=== PATIENT | female | born 1975 | race Caucasian/White ===

== ENCOUNTER 2021-01-25 12:47 | Emergency (ER) | payer MEDICARE, MEDICAID ==
[~2021-01-25] VITALS: Ht 152.4 cm; Wt 94.0 kg
[2021-01-25] MEDS ORDERED: dextrose ORAL solution 15 GM/59 ML bottle PO PRN (13:05)
--- NOTE | 2021-01-25 13:35 | NUR ---
BS 61. improved from BS 34
[2021-01-25] MEDS ORDERED: dextrose 50%-water 50ml dispensing syringe IV ONE (14:02)
[2021-01-25 15:03] LABS: BASOPHILS # (AUTO) 0.1 X10'3 (0-0.2); BASOPHILS % (AUTO) 0.8 % (0-1); EOSINOPHILS # (AUTO) 0.4 X10'3 (0-0.9); EOSINOPHILS % (AUTO) 6.5 % (0-6); HEMATOCRIT 25.8 % (35.0-45.0); HEMOGLOBIN 8.2 g/dl (12.0-16.0); LYMPHOCYTES % (AUTO) 14.9 % (21-51); MEAN CORPUSCULAR HEMOGLOBIN 32.3 PG (27.0-31.0); MEAN CORPUSCULAR HGB CONC 31.9 g/dL (33.0-36.5); MEAN CORPUSCULAR VOLUME 101.2 FL (78-98); MEAN PLATELET VOLUME 8.6 FL (7.4-10.4); MONOCYTES # (AUTO) 0.5 X10'3 (0-0.9); MONOCYTES % (AUTO) 7.1 % (2-12); NEUTROPHILS # (AUTO) 4.8 X10'3 (1.8-7.7); NEUTROPHILS % (AUTO) 70.7 % (42-75); PLATELET COUNT 170 X10'3 (140-440); RED BLOOD COUNT 2.54 X10'6 (4.20-5.60); RED CELL DISTRIBUTION WIDTH 20.1 % (11.5-14.5); WHITE BLOOD COUNT 6.9 X10'3 (4.5-11.0)
[2021-01-25 15:25] LABS: ALBUMIN/GLOBULIN RATIO 0.5 (1.1-1.5); ALKALINE PHOSPHATASE 165 IU/L (46-116); ANION GAP 13 (8-16); ASPARTATE AMINO TRANSFERASE 17 U/L (10-37); BILIRUBIN,TOTAL 0.5 MG/DL (0.1-1.0); BLOOD UREA NITROGEN 24 MG/DL (7-18); BUN/CREATININE RATIO 3.4 (6.6-38.0); CALCIUM 8.7 MG/DL (8.5-10.1); CHLORIDE 105 MMOL/L (99-107); GLUCOSE 128 MG/DL (70-104); POTASSIUM 3.7 MMOL/L (3.5-5.1); SODIUM 143 MMOL/L (135-145); TOTAL CARBON DIOXIDE 24.6 MMOL/L (24-32); TOTAL PROTEIN 6.2 G/DL (6.4-8.2); eGFR 6 ML/MIN
[2021-01-25 15:28] LABS: ALANINE AMINOTRANSFERASE < 6 U/L (12-78)
[2021-01-25 19:56] VITALS: BP 132/79
== END 2021-01-25 20:27 | disposition home or self-care (01) ==
LOC: ER 12:49
DX: E11.649 Type 2 diabetes mellitus with hypoglycemia without coma (principal); E11.22 Type 2 diabetes mellitus with diabetic chronic kidney disease; N18.6 End stage renal disease; Z99.2 Dependence on renal dialysis; Z79.4 Long term (current) use of insulin
CPT/HCPCS: 36415; 80053; 82948; 83605; 84145; 85025; 87040; 87077; 87186; 93005; 96374; 99284; 99291

== ENCOUNTER 2021-05-28 14:25 | Inpatient (IN) | payer MEDICARE, MEDICAID ==
[~2021-05-28] VITALS: Ht 160 cm; Wt 104.0 kg
[2021-05-28] MEDS ORDERED: dextrose 50%-water 50ml dispensing syringe IV ONE (15:10)
[2021-05-28 15:14] LABS: BASOPHILS % (AUTO) 0.6 % (0-1); EOSINOPHILS # (AUTO) 0.1 X10'3 (0-0.9); EOSINOPHILS % (AUTO) 0.8 % (0-6); HEMATOCRIT 24.7 % (35.0-45.0); HEMOGLOBIN 8.2 g/dl (12.0-16.0); LYMPHOCYTES # (AUTO) 0.9 X10'3 (1.1-4.8); LYMPHOCYTES % (AUTO) 12.9 % (21-51); MEAN CORPUSCULAR HEMOGLOBIN 30.8 PG (27.0-31.0); MEAN CORPUSCULAR HGB CONC 33.3 g/dL (33.0-36.5); MEAN CORPUSCULAR VOLUME 92.5 FL (78-98); MEAN PLATELET VOLUME 8.2 FL (7.4-10.4); MONOCYTES # (AUTO) 0.5 X10'3 (0-0.9); MONOCYTES % (AUTO) 6.8 % (2-12); NEUTROPHILS # (AUTO) 5.8 X10'3 (1.8-7.7); NEUTROPHILS % (AUTO) 78.9 % (42-75); PLATELET COUNT 136 X10'3 (140-440); RED BLOOD COUNT 2.67 X10'6 (4.20-5.60); RED CELL DISTRIBUTION WIDTH 18.6 % (11.5-14.5); WHITE BLOOD COUNT 7.4 X10'3 (4.5-11.0)
[2021-05-28 15:37] LABS: ALANINE AMINOTRANSFERASE 11 U/L (12-78); ALBUMIN 1.2 G/DL (3.4-5.0); ALBUMIN/GLOBULIN RATIO 0.3 (1.1-1.5); ALKALINE PHOSPHATASE 138 IU/L (46-116); ANION GAP 11 (8-16); ASPARTATE AMINO TRANSFERASE 66 U/L (10-37); BILIRUBIN,TOTAL 0.9 MG/DL (0.1-1.0); CALCIUM 9.2 MG/DL (8.5-10.1); CHLORIDE 102 MMOL/L (99-107); GLUCOSE 68 MG/DL (70-104); MAGNESIUM 1.7 MG/DL (1.5-2.4); POTASSIUM 3.8 MMOL/L (3.5-5.1); SODIUM 139 MMOL/L (135-145); TOTAL CARBON DIOXIDE 26.2 MMOL/L (24-32); TOTAL PROTEIN 4.8 G/DL (6.4-8.2)
[2021-05-28 15:47] LABS: BLOOD UREA NITROGEN 7 MG/DL (7-18); eGFR 12 ML/MIN
[2021-05-28 15:49] LABS: BUN/CREATININE RATIO 1.8 (6.6-38.0)
--- NOTE | 2021-05-28 16:15 | NUR ---
xray at bedside
[2021-05-28] MEDS ORDERED: ondansetron/PF 4mg/2ml inj IV ONE (16:20)
[2021-05-28] MEDS ORDERED: morphine 4 MG/ML inj SYRINge IV ONE (16:20)
[2021-05-28] MEDS ORDERED: MESSAGE TO PHARMACY PO ONE (16:25)
[2021-05-28] MEDS ORDERED: magnesium 2GM in 50ml NS 50 ML IV PRN (16:25)
[2021-05-28] MEDS ORDERED: dextrose 50%-water 50ml dispensing syringe IV PRN (16:25)
[2021-05-28] MEDS ORDERED: insulin Lispro (HumaLOG) vial - multi-dose SQ SCH (16:25)
[2021-05-28] MEDS ORDERED: magnesium hydroxide 30ml (MOM) UD suspension PO PRN (16:25)
[2021-05-28] MEDS ORDERED: potassium CL 10mEq/100ml bag 100 ML IV PRN (16:25)
[2021-05-28] MEDS ORDERED: magnesium 4gm in 100ml NS 100 ML IV PRN (16:25)
[2021-05-28] MEDS ORDERED: potassium Cl 20 mEq SR tablet PO PRN ×2 (16:25)
[2021-05-28] MEDS ORDERED: dextrose ORAL solution 15 GM/59 ML bottle PO PRN ×2 (16:25)
[2021-05-28] MEDS ORDERED: ondansetron/PF 4mg/2ml inj IV PRN (16:25)
[2021-05-28] MEDS ORDERED: acetaminophen 325mg tablet PO PRN (16:25)
[2021-05-28] MEDS ORDERED: mag hydrox/Alum hydrox/simeth 30ml oral suspension PO PRN (16:25)
[2021-05-28] MEDS ORDERED: glucagon, human recombinant 1mg kit SUBCUT PRN (16:25)
--- NOTE | 2021-05-28 16:30 | NUR ---
pt changed into gown, linens changed, medicated for pain.
--- NOTE | 2021-05-28 16:41 | NUR ---
admitting provider at bedside.
[2021-05-28 16:57] LABS: ANISOCYTOSIS 2+; PLATELET ESTIMATE DECREASED; TARGET CELLS 1+
[2021-05-28 16:59] LABS: HYPOCHROMASIA 1+; LARGE PLATELETS FEW; POLYCHROMASIA 2+
[2021-05-28] MEDS ORDERED: dextrose 5%-water 1,000 ML IV SCH (17:20)
[2021-05-28] MEDS ORDERED: INSU100C10 SQ (17:56)
[2021-05-28] MEDS ORDERED: HYDR-3972 PO (17:56)
[2021-05-28] MEDS ORDERED: INSU100V9 SQ (17:56)
[2021-05-28] MEDS ORDERED: ATOR40TA7 PO (17:56)
[2021-05-28] MEDS ORDERED: ASPI-611 PO (17:56)
[2021-05-28] MEDS ORDERED: GABA300C PO (17:56)
[2021-05-28] MEDS ORDERED: PANT-47 PO (17:56)
[2021-05-28] MEDS: K and/or MAG REPLACEMENT MC SCH (20:00)
[2021-05-28] MEDS: docusate sod 100mg capsule PO SCH (20:00)
[2021-05-28] MEDS: insulin glargine (Lantus) pen - multi-dose SQ SCH (21:00)
--- NOTE | 2021-05-28 21:49 | NUR ---
Received report from ER nurse Ledy, Dx: Hypoglycemia BG 35 when arrived to ER, D5 100 was adm. at ER, BG was increased at 94.
--- NOTE | 2021-05-28 22:20 | NUR ---
Patient arrived from ER via room care bed, with 2 personnels to 3015B. Transfer to bed with 4 assist., 2 skin assessment and nares swab completed. AAOX4, Dx: Hypoglycemia, Hx: ESRD, HTN, Multiple skin wounds, PVD, BKA. Safety measures and comfort provided. Will continue to monitor.
[2021-05-28 23:00] VITALS: BP 100/59
--- NOTE | 2021-05-29 00:30 | NUR ---
Patient c/o pain to Sacral area and ARMIDA knee stumps. Called placed to Dr Romo and new orders was received and carried out.
[2021-05-29] MEDS ORDERED: HYDROcodone/acetaminophen 10/325mg tab PO ONE (00:40)
[2021-05-29 03:00] VITALS: BP 104/56
--- NOTE | 2021-05-29 05:30 | NUR ---
BG 74, no s/s of hypoglycemia noted. Juice was given, tolerated well. Repositioned patient. Safety measures and comfort maintained. Will continue to monitor.
--- NOTE | 2021-05-29 06:24 | NUR ---
Problems reprioritized. Patient report given, questions answered & plan of care reviewed with CHRIS Carvalho.
[2021-05-29 07:00] VITALS: BP 100/58
--- NOTE | 2021-05-29 07:00 | NUR ---
Patient in room PCU 3015. I have received report from Flower and had the opportunity to ask questions and assume patient care.
[2021-05-29 07:29] LABS: BASOPHILS % (AUTO) 0.7 % (0-1); EOSINOPHILS # (AUTO) 0.1 X10'3 (0-0.9); EOSINOPHILS % (AUTO) 1.9 % (0-6); HEMATOCRIT 23.6 % (35.0-45.0); LYMPHOCYTES # (AUTO) 0.9 X10'3 (1.1-4.8); LYMPHOCYTES % (AUTO) 14.6 % (21-51); MEAN CORPUSCULAR HEMOGLOBIN 31.2 PG (27.0-31.0); MEAN CORPUSCULAR VOLUME 91.9 FL (78-98); MONOCYTES # (AUTO) 0.5 X10'3 (0-0.9); NEUTROPHILS # (AUTO) 4.8 X10'3 (1.8-7.7); NEUTROPHILS % (AUTO) 74.8 % (42-75); PLATELET COUNT 133 X10'3 (140-440); RED BLOOD COUNT 2.57 X10'6 (4.20-5.60); RED CELL DISTRIBUTION WIDTH 18.9 % (11.5-14.5); WHITE BLOOD COUNT 6.5 X10'3 (4.5-11.0)
[2021-05-29 07:46] LABS: ALANINE AMINOTRANSFERASE 11 U/L (12-78); ALBUMIN 1.2 G/DL (3.4-5.0); ALBUMIN/GLOBULIN RATIO 0.3 (1.1-1.5); ALKALINE PHOSPHATASE 131 IU/L (46-116); ANION GAP 11 (8-16); ASPARTATE AMINO TRANSFERASE 55 U/L (10-37); BLOOD UREA NITROGEN 8 MG/DL (7-18); BUN/CREATININE RATIO 1.9 (6.6-38.0); CALCIUM 9.1 MG/DL (8.5-10.1); CHLORIDE 104 MMOL/L (99-107); CREATININE 4.15 MG/DL (0.40-0.90); GLUCOSE 91 MG/DL (70-104); MAGNESIUM 1.8 MG/DL (1.5-2.4); POTASSIUM 3.8 MMOL/L (3.5-5.1); SODIUM 142 MMOL/L (135-145); TOTAL CARBON DIOXIDE 26.7 MMOL/L (24-32); TOTAL PROTEIN 4.9 G/DL (6.4-8.2); eGFR 12 ML/MIN
[2021-05-29] MEDS ORDERED: EPOETIN ALFA-EPBX 20,000 UNIT/ML 1 ML MDV IV ONE (08:00)
[2021-05-29] MEDS: K and/or MAG REPLACEMENT MC SCH ×2 (08:00→20:00)
[2021-05-29] MEDS ORDERED: normal saline 1000ml 250 ML IV PRN (08:00)
[2021-05-29] MEDS ORDERED: heparin 1,000 units/ml 10ml inj HE ONE ×2 (08:00)
[2021-05-29] MEDS ORDERED: heparin 1,000unit/ml 10ml vial 10 ML IV ONE (08:00)
[2021-05-29 08:39] LABS: PLATELET ESTIMATE DECREASED
[2021-05-29 08:40] LABS: ANISOCYTOSIS 2+; POIKILOCYTOSIS 1+; POLYCHROMASIA FEW; TARGET CELLS 1+
[2021-05-29] MEDS: gabapentin 300mg capsule PO SCH (08:53)
[2021-05-29] MEDS: docusate sod 100mg capsule PO SCH ×2 (08:53→20:18)
[2021-05-29] MEDS: HYDROcodone/acetaminophen 10/325mg tab PO SCH (08:53)
[2021-05-29] MEDS: atorvastatin 20mg tablet PO SCH (08:54)
[2021-05-29] MEDS: aspirin 81mg, enteric-coated 1 TAB TABLET.DR PO SCH (08:54)
[2021-05-29] MEDS: pantoprazole 40mg Tablet.DR PO SCH (08:59)
[2021-05-29 11:00] VITALS: BP 93/54
--- NOTE | 2021-05-29 14:33 | NUR ---
Malnutrition consult: Pt unsure of wt loss though reports decreased appetite per malnutrition risk screen with RN. Current documented wt is not scaled and no wt hx in EMR. Noted pt documented to have refused first meal on renal CHO controlled diet. Pt seen at bedside while receiving dialysis though unable to obtain any information as pt sleepy and quickly fell asleep during RD visit. RD was able to provide written and verbal protein education prior to pt falling asleep as pt pending wound care assessment for multiple wounds per EMR. Pt with no visible fat or muscle wasting and no documented edema or decrease in muscle strength. Pt currently lacks a minimum of two criteria for malnutrition though will continue to monitor qualifying criteria. Noted pt with DM, very well controlled with A1c 4.6%. D/w RN recommendation to discontinue CHO controlled diet with physician approval in view of A1c as well as pt with episodes of hypoglycemia with BG 35 mg/dL while at wound care per H&P with BG range 55-101 mg/dL since admit. Will continue to follow. Addendum: 05/29/21 at [address] Amended: Links added.
--- NOTE | 2021-05-29 14:53 | NUR ---
Dr. Partida notified via spoke of patient's post dialysis bp-82/60 and no fluids taken out per dialysis nurse. Addendum: 05/29/21 at 1500 by Marilyn Cortez RN Patient's bp should be monitored per Dr. Partida. Plan of care will continue.
[2021-05-29 15:00] VITALS: BP 89/43
[2021-05-29] MEDS ORDERED: HYDROcodone/acetaminophen 10/325mg tab PO PRN (15:15)
[2021-05-29] MEDS ORDERED: morphine 2 MG/ML inj. syringe IV PRN (15:15)
[2021-05-29 18:00] VITALS: BP 90/50
--- NOTE | 2021-05-29 19:04 | NUR ---
Problems reprioritized. Patient report given, questions answered & plan of care reviewed with Anu.
--- NOTE | 2021-05-29 20:24 | NUR ---
Blood sugar 64. client provided with 15G PO glucose solution. blood sugar recheck is 63. Client provided with 25G of IV glucose solution. blood sugar recheck 133. Miss Michel declined dinner this evening. she is resting but arousals easily and conducts conversations when awake.
[2021-05-29] MEDS: insulin glargine (Lantus) pen - multi-dose SQ SCH (20:33)
[2021-05-29] MEDS: dextrose 50%-water 50ml dispensing syringe IV PRN (21:31)
[2021-05-29 22:00] VITALS: BP 145/68
[2021-05-30] VITALS (8 sets, daily range): BP systolic 74–145; BP diastolic 28–61
--- NOTE | 2021-05-30 02:15 | NUR ---
Blood Sugar 93
--- NOTE | 2021-05-30 05:45 | NUR ---
Miss Balbuena has been assessed as indicted. She has been successfully treated for pain x1 this shift. Low blood sugar was treated and followup this shift. She has been bathed and wounds cleansed and dressed. She was anuric BP is WNL. She has been assisted to lay completely on her Right side per her request. She has been assisted to eat one small cup of apple sauce at this time. She is resting quietly and will continue to be monitored
--- NOTE | 2021-05-30 06:15 | NUR ---
Problems reprioritized. Patient report given, questions answered & plan of care reviewed with Maia PEREZ.
--- NOTE | 2021-05-30 06:29 | NUR ---
Patient in room PCU 3015. I have received report from Anu and had the opportunity to ask questions and assume patient care.
[2021-05-30 06:47] LABS: BASOPHILS % (AUTO) 0.4 % (0-1); EOSINOPHILS # (AUTO) 0.1 X10'3 (0-0.9); EOSINOPHILS % (AUTO) 1.8 % (0-6); HEMATOCRIT 27.5 % (35.0-45.0); HEMOGLOBIN 8.7 g/dl (12.0-16.0); LYMPHOCYTES # (AUTO) 0.9 X10'3 (1.1-4.8); LYMPHOCYTES % (AUTO) 15.4 % (21-51); MEAN CORPUSCULAR HEMOGLOBIN 30.9 PG (27.0-31.0); MEAN CORPUSCULAR HGB CONC 31.5 g/dL (33.0-36.5); MEAN PLATELET VOLUME 7.8 FL (7.4-10.4); MONOCYTES # (AUTO) 0.5 X10'3 (0-0.9); MONOCYTES % (AUTO) 8.6 % (2-12); NEUTROPHILS # (AUTO) 4.4 X10'3 (1.8-7.7); NEUTROPHILS % (AUTO) 73.8 % (42-75); PLATELET COUNT 106 X10'3 (140-440); RED BLOOD COUNT 2.81 X10'6 (4.20-5.60); RED CELL DISTRIBUTION WIDTH 20.8 % (11.5-14.5); WHITE BLOOD COUNT 5.9 X10'3 (4.5-11.0)
[2021-05-30 07:11] LABS: ALANINE AMINOTRANSFERASE 14 U/L (12-78); ALBUMIN 1.3 G/DL (3.4-5.0); ALBUMIN/GLOBULIN RATIO 0.3 (1.1-1.5); ALKALINE PHOSPHATASE 154 IU/L (46-116); ANION GAP 9 (8-16); ASPARTATE AMINO TRANSFERASE 56 U/L (10-37); BILIRUBIN,TOTAL 1.2 MG/DL (0.1-1.0); BLOOD UREA NITROGEN 4 MG/DL (7-18); BUN/CREATININE RATIO 1.5 (6.6-38.0); CALCIUM 8.6 MG/DL (8.5-10.1); CHLORIDE 105 MMOL/L (99-107); CREATININE 2.65 MG/DL (0.40-0.90); GLUCOSE 88 MG/DL (70-104); MAGNESIUM 1.7 MG/DL (1.5-2.4); POTASSIUM 4.1 MMOL/L (3.5-5.1); SODIUM 139 MMOL/L (135-145); TOTAL CARBON DIOXIDE 25.5 MMOL/L (24-32); TOTAL PROTEIN 5.3 G/DL (6.4-8.2); eGFR 19 ML/MIN
[2021-05-30 07:17] LABS: ANISOCYTOSIS 3+; PLATELET ESTIMATE DECREASED; POLYCHROMASIA 1+; ROULEAUX 1+; SPHEROCYTES FEW; TARGET CELLS 2+
[2021-05-30] MEDS: K and/or MAG REPLACEMENT MC SCH ×2 (08:00→20:00)
[2021-05-30] MEDS: aspirin 81mg, enteric-coated 1 TAB TABLET.DR PO SCH (08:11)
[2021-05-30] MEDS: gabapentin 300mg capsule PO SCH (08:11)
[2021-05-30] MEDS: HYDROcodone/acetaminophen 10/325mg tab PO SCH (08:12)
[2021-05-30] MEDS: pantoprazole 40mg Tablet.DR PO SCH (08:13)
[2021-05-30] MEDS: atorvastatin 20mg tablet PO SCH (08:13)
[2021-05-30] MEDS: docusate sod 100mg capsule PO SCH ×2 (08:16→20:12)
[2021-05-30] MEDS ORDERED: oxyCODONE/APAP 10/325mg tablet PO PRN (11:40)
--- NOTE | 2021-05-30 11:42 | NUR ---
Scheduled and prn Belfair d/c, prn Percocet 10mg ordered per provider. Plan of care will continue.
--- NOTE | 2021-05-30 12:52 | NUR ---
Dr. Partida made aware of patient's bp-75/53. Will continue to monitor per DR. Partida.
[2021-05-30] MEDS: insulin glargine (Lantus) pen - multi-dose SQ SCH (20:24)
--- NOTE | 2021-05-30 21:07 | NUR ---
Miss Balbuena continues to have low BP. Dr Ladd contacted, new orders for Midodrine TID. If Miss Balbuena's BP does not improve or if she becomes tachycardic ICU is to be contacted.
[2021-05-30] MEDS: midodrine 5mg tablet PO SCH (21:56)
[2021-05-31 02:00] VITALS: BP 89/33
--- NOTE | 2021-05-31 05:45 | NUR ---
Miss Balbuena has been assessed as indicated. She has been assisted to eat and was able to complete 1/2 of her dinner. BP has begun to increase after new medication Midodrine was provided. She does complain of mild pain with repositioning. However, her BP has not been stable so as to tolerate the possible drop with pain medication. She is presently resting quietly.
[2021-05-31 06:00] VITALS: BP 103/24
--- NOTE | 2021-05-31 06:15 | NUR ---
Problems reprioritized. Patient report given, questions answered & plan of care reviewed with KIERRA PEREZ.
[2021-05-31 07:03] LABS: BASOPHILS % (AUTO) 0.7 % (0-1); EOSINOPHILS # (AUTO) 0.1 X10'3 (0-0.9); EOSINOPHILS % (AUTO) 2.3 % (0-6); HEMATOCRIT 25.7 % (35.0-45.0); HEMOGLOBIN 8.4 g/dl (12.0-16.0); LYMPHOCYTES % (AUTO) 15.1 % (21-51); MEAN CORPUSCULAR HEMOGLOBIN 31.2 PG (27.0-31.0); MEAN CORPUSCULAR HGB CONC 32.8 g/dL (33.0-36.5); MEAN CORPUSCULAR VOLUME 94.8 FL (78-98); MEAN PLATELET VOLUME 8.5 FL (7.4-10.4); MONOCYTES # (AUTO) 0.6 X10'3 (0-0.9); MONOCYTES % (AUTO) 9.2 % (2-12); NEUTROPHILS # (AUTO) 4.8 X10'3 (1.8-7.7); NEUTROPHILS % (AUTO) 72.7 % (42-75); PLATELET COUNT 131 X10'3 (140-440); RED BLOOD COUNT 2.71 X10'6 (4.20-5.60); RED CELL DISTRIBUTION WIDTH 20.8 % (11.5-14.5); WHITE BLOOD COUNT 6.6 X10'3 (4.5-11.0)
[2021-05-31 07:33] LABS: ALANINE AMINOTRANSFERASE 16 U/L (12-78); ALBUMIN 1.3 G/DL (3.4-5.0); ALBUMIN/GLOBULIN RATIO 0.3 (1.1-1.5); ALKALINE PHOSPHATASE 180 IU/L (46-116); ANION GAP 7 (8-16); ASPARTATE AMINO TRANSFERASE 50 U/L (10-37); BILIRUBIN,TOTAL 1.2 MG/DL (0.1-1.0); BLOOD UREA NITROGEN 5 MG/DL (7-18); BUN/CREATININE RATIO 1.6 (6.6-38.0); CHLORIDE 104 MMOL/L (99-107); CREATININE 3.12 MG/DL (0.40-0.90); GLUCOSE 120 MG/DL (70-104); MAGNESIUM 1.8 MG/DL (1.5-2.4); POTASSIUM 4.2 MMOL/L (3.5-5.1); SODIUM 139 MMOL/L (135-145); TOTAL CARBON DIOXIDE 28.5 MMOL/L (24-32); TOTAL PROTEIN 5.4 G/DL (6.4-8.2); eGFR 16 ML/MIN
[2021-05-31] MEDS: atorvastatin 20mg tablet PO SCH (07:44)
[2021-05-31] MEDS: pantoprazole 40mg Tablet.DR PO SCH (07:44)
[2021-05-31] MEDS: gabapentin 300mg capsule PO SCH (07:44)
[2021-05-31] MEDS: aspirin 81mg, enteric-coated 1 TAB TABLET.DR PO SCH (07:45)
[2021-05-31] MEDS: docusate sod 100mg capsule PO SCH ×2 (07:45→21:21)
[2021-05-31] MEDS: midodrine 5mg tablet PO SCH ×3 (07:45→16:24)
[2021-05-31] MEDS: K and/or MAG REPLACEMENT MC SCH ×2 (08:00→19:21)
[2021-05-31] MEDS ORDERED: EPOETIN ALFA-EPBX 20,000 UNIT/ML 1 ML MDV IV ONE (10:45)
[2021-05-31] MEDS ORDERED: heparin 1,000unit/ml 10ml vial 10 ML IV ONE (10:45)
[2021-05-31] MEDS ORDERED: heparin 1,000 units/ml 10ml inj HE ONE ×2 (10:50)
[2021-05-31 11:00] VITALS: BP 97/55
[2021-05-31] MEDS ORDERED: OXYC1TAB17 PO (11:48)
[2021-05-31] MEDS ORDERED: vancomycin/NS 1 GM ADD-VANTAGE 250 ML IV ONE (13:45)
[2021-05-31 15:00] VITALS: BP 95/58
--- NOTE | 2021-05-31 16:02 | NUR ---
WOUND INFECTION EDUCATION PROVIDED BY WOUND CARE 1. Patient instructed to call their primary doctor, or go the ED immediately if any of the following symptoms occur: * Increased pain in wound * Increase in drainage from the wound * Redness in the skin surrounding the wound * Warmth in the skin surrounding the wound * Bleeding from the wound * Temperature of 101 or greater 2. If any of these occur while in the hospital tell a nurse immediately. PRESSURE ULCER EDUCATION: DEFINITION: A pressure ulcer is an area of skin that breaks down when you stay in one position too long. The constant pressure against the skin reduces the blood flow to that area and the affected tissue dies. CAUSES: "Being bedridden or in a wheelchair "Fragile skin "Having a chronic condition, such as diabetes or vascular disease "Inability to move certain parts of your body without assistance "Older age "Incontinence of urine or stool SYMPTOMS: "A reddened area that DOES NOT turn white when pressed on - this can be the beginning of a pressure ulcer "A blister, deep sore or a crater - these can be advanced pressure ulcers FIRST AID: "Relieve the pressure on this area "Keep the area clean and dry "Call your primary doctor if you see any of the above symptoms "DO NOT massage the area "DO NOT use a donut shaped or ring shaped pillow- these actually interfere with the blood flow and cause complications PREVENTION: "Check for pressure ulcers everyday "Change position at least every two hours to relieve pressure "Use items that help relieve pressure- pillows, sheepskin, foam padding, and powders. "Keep skin clean and dry "Eat healthy well balanced meals "Exercise daily IF YOU SEE ANY OF THESE SYMPTOMS WHILE IN THE HOSPITAL - TELL YOUR NURSE IMMEDIATELY. IF YOU SEE ANY OF THESE SYMPTOMS WHILE AT HOME OR HAVE ANY QUESTIONS OR CONCERNS ABOUT PRESSURE ULCERS - CALL YOUR PRIMARY DOCTOR IMMEDIATELY. Addendum: 05/31/21 at 1603 by Debra Katz RN Amended: Links added.
--- NOTE | 2021-05-31 19:00 | NUR ---
Miss Balbuena has been assessed as indicated. She is resting quietly with no s/s of distress or discomfort. she is sleeping but arouses easily. VSS.
[2021-05-31 20:00] VITALS: BP 97/71
[2021-05-31] MEDS: insulin glargine (Lantus) pen - multi-dose SQ SCH (21:00)
--- NOTE | 2021-05-31 22:30 | NUR ---
Miss Michel has is being set up to be assisted with dinner. She is sleeping but arouses easily. She is sleepy as she has been in recent evening shifts. This mortgage or loan underwriter calls her name repeatedly and she replies by saying "Im up". She is offered dinner and agrees with a nod She is given 1/2 cookie and tolerates it well. She is given a carrot from her warmed plate she began to chew and makes a face. She is asked if she wants to spit it out she nods yes and spits it into a napkin.easily. She starts to have a moist productive cough. She is unable to expectorate the secretions. Her head begin to loll to the side with fixed pupil. She does have a pulse and continues to breath. Staff starts the rapid response call protocol.However, her heat drops to 38 rapidly. A code blue is called and initiated.
--- NOTE | 2021-05-31 22:50 | NUR ---
phone call placed to Miss Balbuena next of kin. Garo Pierce ([phone]) He states that he is her . He is informed that he condition has changed and he CPR has been started and that he should make his way to the hospital as quickly as he can. He states that he is on his way.
[2021-05-31 23:04] LABS: BASOPHILS # (AUTO) 0.1 X10'3 (0-0.2); BASOPHILS % (AUTO) 0.6 % (0-1); EOSINOPHILS # (AUTO) 0.2 X10'3 (0-0.9); EOSINOPHILS % (AUTO) 1.6 % (0-6); HEMATOCRIT 27.3 % (35.0-45.0); HEMOGLOBIN 8.7 g/dl (12.0-16.0); LYMPHOCYTES # (AUTO) 3.6 X10'3 (1.1-4.8); MEAN CORPUSCULAR HEMOGLOBIN 31.2 PG (27.0-31.0); MEAN CORPUSCULAR VOLUME 97.4 FL (78-98); MEAN PLATELET VOLUME 7.8 FL (7.4-10.4); MONOCYTES % (AUTO) 8.9 % (2-12); NEUTROPHILS # (AUTO) 6.2 X10'3 (1.8-7.7); NEUTROPHILS % (AUTO) 55.9 % (42-75); PLATELET COUNT 65 X10'3 (140-440); RED CELL DISTRIBUTION WIDTH 21.1 % (11.5-14.5)
--- NOTE | 2021-05-31 23:10 | NUR ---
Call placed to Mr. Pierce he states that he is an hour away and asks that staff do all they can to keep her alive. He is assured that all effort will be made
[2021-05-31] MEDS ORDERED: CISatracurium **Bolus** 2 mg/ml inj IV PRN (23:15)
[2021-05-31] MEDS ORDERED: CISatracurium besylate inj. 100 MG in normal saline 100ml IV soln 90 ML IV PRN (23:15)
[2021-05-31 23:19] LABS: ALANINE AMINOTRANSFERASE 18 U/L (12-78); ALBUMIN 1.1 G/DL (3.4-5.0); ALBUMIN/GLOBULIN RATIO 0.3 (1.1-1.5); ALKALINE PHOSPHATASE 184 IU/L (46-116); ANION GAP 9 (8-16); ASPARTATE AMINO TRANSFERASE 63 U/L (10-37); BLOOD UREA NITROGEN 3 MG/DL (7-18); BUN/CREATININE RATIO 1.4 (6.6-38.0); CALCIUM 8.5 MG/DL (8.5-10.1); CHLORIDE 104 MMOL/L (99-107); CREATININE 2.19 MG/DL (0.40-0.90); GLUCOSE 117 MG/DL (70-104); POTASSIUM 4.4 MMOL/L (3.5-5.1); SODIUM 137 MMOL/L (135-145); TOTAL CARBON DIOXIDE 23.6 MMOL/L (24-32); TOTAL PROTEIN 4.5 G/DL (6.4-8.2); eGFR 24 ML/MIN
[2021-05-31 23:21] LABS: MAGNESIUM 1.8 MG/DL (1.5-2.4); PHOSPHORUS 2.4 MG/DL (2.3-4.5)
--- NOTE | 2021-05-31 23:35 | NUR ---
miss Balbuena is transferred to ICU 38 report was given o nurse CONSUELO. Miss Balbuena has yue intubated and placed on a ventilator she has ROSC, after a code blue that required multiple rounds of emergency medications as well as being shocked x2
[2021-05-31 23:46] LABS: ABG BASE EXCESS -1.7 mmol/L (-2.0-2.0); ABG HCO3 21.8 mmol/L (22.0-26.0); ABG OXYGEN SATURATION 99.2 % (94-97); ABG PCO2 (T) 33.4 mmHg (32.0-45.0); ALLEN'S TEST POSITIVE; FCOHb 0.3 % (0.0-3.9); FMetHb 0.5 % (0.0-1.5); FO2Hb 98.4 % (94-97); PATIENT TEMPERATURE 37.6; PEEP 5 cm H2O; RESPIRATORY RATE 18 b/min; TIDAL VOLUME 400 mL; TOTAL HEMOGLOBIN 10.1 G/dl (12.0-16.0)
[2021-05-31] MEDS ORDERED: midazolam 1 mg/ML 2ml injection IV ONE (23:55)
[2021-06-01] VITALS (24 sets, daily range): BP systolic 86–124; BP diastolic 45–76
[2021-06-01] MEDS: Insulin Reg/NS 100units/100mL 100 ML IV SCH
[2021-06-01] MEDS ORDERED: dextrose 50%-water 50ml dispensing syringe IV PRN
[2021-06-01 00:51] LABS: APTT 90 SECONDS (22-32)
[2021-06-01] MEDS: midazolam 100mg in NS 100ml 100 ML IV PRN ×4 (00:52→18:46)
[2021-06-01] MEDS: FENTANYL-0.9 % NACL/PF 100 ML IV PRN ×4 (00:53→18:45)
[2021-06-01] MEDS: midodrine 5mg tablet PO SCH (02:00)
[2021-06-01] MEDS ORDERED: cefepime 1GM in D5W 50mL 50 ML IV ONE (02:25)
[2021-06-01] MEDS ORDERED: NORepinephrine 8mg/ 250ml NS 250 ML IV SCH (02:55)
[2021-06-01 03:43] LABS: LYMPHOCYTES # (AUTO) 0.6 X10'3 (1.1-4.8); MEAN CORPUSCULAR HEMOGLOBIN 31.3 PG (27.0-31.0)
[2021-06-01 03:46] LABS: BASOPHILS % (AUTO) 0.3 % (0-1); EOSINOPHILS % (AUTO) 0.2 % (0-6); HEMATOCRIT 30.7 % (35.0-45.0); HEMOGLOBIN 9.9 g/dl (12.0-16.0); LYMPHOCYTES % (AUTO) 5.7 % (21-51); MEAN CORPUSCULAR HGB CONC 32.3 g/dL (33.0-36.5); MEAN CORPUSCULAR VOLUME 96.8 FL (78-98); MEAN PLATELET VOLUME 8.8 FL (7.4-10.4); MONOCYTES # (AUTO) 0.8 X10'3 (0-0.9); MONOCYTES % (AUTO) 7.1 % (2-12); NEUTROPHILS # (AUTO) 9.5 X10'3 (1.8-7.7); NEUTROPHILS % (AUTO) 86.7 % (42-75); PLATELET COUNT 163 X10'3 (140-440); RED BLOOD COUNT 3.17 X10'6 (4.20-5.60); RED CELL DISTRIBUTION WIDTH 20.5 % (11.5-14.5)
[2021-06-01] MEDS: NORepinephrine inj. 32 MG in normal saline 250ml IV soln 218 ML IV SCH (03:52)
[2021-06-01 03:54] LABS: APTT 37 SECONDS (22-32)
[2021-06-01 03:55] LABS: ALANINE AMINOTRANSFERASE 23 U/L (12-78); ALBUMIN 1.3 G/DL (3.4-5.0); ALBUMIN/GLOBULIN RATIO 0.3 (1.1-1.5); ALKALINE PHOSPHATASE 217 IU/L (46-116); ANION GAP 12 (8-16); ASPARTATE AMINO TRANSFERASE 91 U/L (10-37); BILIRUBIN,TOTAL 1.9 MG/DL (0.1-1.0); BLOOD UREA NITROGEN 3 MG/DL (7-18); BUN/CREATININE RATIO 1.3 (6.6-38.0); CALCIUM 8.8 MG/DL (8.5-10.1); CHLORIDE 102 MMOL/L (99-107); CREATININE 2.27 MG/DL (0.40-0.90); GLUCOSE 110 MG/DL (70-104); MAGNESIUM 1.7 MG/DL (1.5-2.4); POTASSIUM 3.5 MMOL/L (3.5-5.1); SODIUM 138 MMOL/L (135-145); TOTAL CARBON DIOXIDE 23.6 MMOL/L (24-32); TOTAL PROTEIN 5.4 G/DL (6.4-8.2); eGFR 23 ML/MIN
[2021-06-01 04:50] LABS: ABG BASE EXCESS 0.8 mmol/L (-2.0-2.0); ABG OXYGEN SATURATION 99.5 % (94-97); ABG PCO2 (T) 23.9 mmHg (32.0-45.0); ABG PO2 (T) 263.4 mmHg (75.0-100.0); ALLEN'S TEST POSITIVE; FCOHb 0.3 % (0.0-3.9); FMetHb 0.2 % (0.0-1.5); PATIENT TEMPERATURE 32.7; PEEP 5 cm H2O; RESPIRATORY RATE 18 b/min; TIDAL VOLUME 400 mL; TOTAL HEMOGLOBIN 10.8 G/dl (12.0-16.0)
[2021-06-01 04:50] LABS: NUCLEATED RED BLOOD CELLS 2 /100WBC (0-0); PLATELET ESTIMATE NORMAL; TOTAL CELLS COUNTED 100
[2021-06-01 04:51] LABS: ANISOCYTOSIS 3+; SPHEROCYTES FEW; TARGET CELLS 1+
[2021-06-01 04:52] LABS: LARGE PLATELETS FEW; POLYCHROMASIA FEW; TEAR DROP CELLS FEW
[2021-06-01] MEDS ORDERED: amiodarone/D5 360MG/200ML BAG 200 ML IV SCH (05:00)
--- NOTE | 2021-06-01 05:26 | NUR ---
[id number] Received pt post code blue from PCU. Pt is on mechanical ventilator, see respitory notes for details, pt on Levophed to keep MAP greater then 60. Wound care consult placed and photos obtained as pt has multiple wounds, wounds cleaned and dressed , Hypothermic orders in place and initiated. Multiple attempts to contact Dr. Torres , call made to Nephrology for guidance from a nephrology stand point. Updated on coarse of events. Recommendations to limit IV fluids as much as possible, OK to access HD catheter for medication administration as ER MD unavailable to place CVL. Tele doc returned call, want an additional 1.5 Gm of Vancomycin and would like to start pt on CVVH. Spoke to Nephrology again who said do not give any more Vancomycin as the pt received 1 GM post dialysis earlier in the day. Reviewed positive blood cultures via dialysis catheter. Per Dr Guerrero pt will need IR to place a new HD line in the morning, he will evaluate the pt at that time for CVVH. Relayed this information to Dr. Torres and reviewed pts elevated PTT, he does not want the heprin drip started at this time. in to see pt, he stated that the pt has a boiler control room operator at [facility] who he will get in contact with them. Reviewed with Dr. Jonas her elevated troponin no new orders at this time. report given to rec rn . all belongings sent home with . Addendum: 06/01/21 at 0619 by Kierra Linares RN per Dr Duque would prefer to keep pt 34 degrees celsius to 36 degrees Celsius.
[2021-06-01 06:30] LABS: HBSAG SCREEN Negative (Negative)
[2021-06-01] MEDS: K and/or MAG REPLACEMENT MC SCH ×2 (08:00→20:00)
[2021-06-01] MEDS: atorvastatin 20mg tablet PO SCH (08:59)
[2021-06-01] MEDS: aspirin 81mg, enteric-coated 1 TAB TABLET.DR PO SCH (08:59)
[2021-06-01] MEDS: gabapentin 300mg capsule PO SCH (09:00)
[2021-06-01] MEDS: piperacillin/tazo 3.375gm/50ml 50 ML IV SCH ×2 (09:20→17:09)
[2021-06-01] MEDS ORDERED: LIDOcaine 1% (10mg/ml) 2ml vial ONE (09:49)
[2021-06-01] MEDS ORDERED: LIDOCAINE 1%/EPI 1:100,000 inj. 10 ML multi-dose vial ONE (10:10)
[2021-06-01] MEDS ORDERED: CISatracurium **Bolus** 2 mg/ml inj IV PRN (10:25)
[2021-06-01] MEDS ORDERED: heparin 1,000 units/ml 10ml inj HE ONE ×2 (10:40)
[2021-06-01] MEDS ORDERED: CISatracurium besylate inj. 100 MG in normal saline 100ml IV soln 90 ML IV PRN ×3 (11:15)
[2021-06-01] MEDS ORDERED: dextrose ORAL solution 15 GM/59 ML bottle OGT PRN ×2 (11:23)
[2021-06-01] MEDS ORDERED: mag hydrox/Alum hydrox/simeth 30ml oral suspension OGT PRN (11:23)
[2021-06-01] MEDS ORDERED: magnesium hydroxide 30ml (MOM) UD suspension OGT PRN (11:23)
[2021-06-01] MEDS ORDERED: acetaminophen 325mg/10.15ml oral unit dose solution OGT PRN (11:25)
[2021-06-01 11:31] LABS: ALBUMIN 1.1 G/DL (3.4-5.0); ANION GAP 11 (8-16); BLOOD UREA NITROGEN 4 MG/DL (7-18); BUN/CREATININE RATIO 1.8 (6.6-38.0); CALCIUM 8.7 MG/DL (8.5-10.1); CHLORIDE 103 MMOL/L (99-107); CREATININE 2.26 MG/DL (0.40-0.90); GLUCOSE 133 MG/DL (70-104); MAGNESIUM 1.6 MG/DL (1.5-2.4); POTASSIUM 3.4 MMOL/L (3.5-5.1); SODIUM 139 MMOL/L (135-145); TOTAL CARBON DIOXIDE 25.4 MMOL/L (24-32); eGFR 23 ML/MIN
[2021-06-01] MEDS: lansoprazole 15mg solutab OGT SCH (11:45)
[2021-06-01] MEDS: docusate sodium 100mg/10ml UD cup OGT SCH ×2 (11:45→22:00)
[2021-06-01] MEDS: mineral oil/petrolatum ophthal oint EACHEYE SCH ×3 (11:46→20:00)
[2021-06-01] MEDS ORDERED: midodrine 5mg tablet OGT SCH (12:00)
[2021-06-01 12:03] LABS: CKMB RELATIVE INDEX 12.6 RATIO (0-2.5); CREATINE KINASE 133 U/L (26-192)
--- NOTE | 2021-06-01 12:08 | NUR ---
Initial: Pt intubated s/p cardiac arrest DX septic shock on hypothermia protocol at this time per EMR. Pt initially admit for hypoglycemia hx ESRD on HD, bilateral BKA's, and insulin-dependent DM w/ Glu 110-117mg/dl this AM up from initial 55mg/dl on admit per EMR. A1C 4.6% w/ poor PO intake prior to intubation 0% vs refusing meals 3 days. IF poor PO intake persists at home may contribute to A1C even w/ hx insulin-dependence. Per [facility]OC note; pt has full thickness R hip abscess and R BKA stump full thickness surgical wounds w/ partial thickness IAD. OG in place w/ MAP 84 this AM at rounds. TF recs below in case to start. Will continue to monitor for nutrition support needs on vent. Rec: 1. IF TF; continuous TF using Vital High Protein at 60ml/hr goal. Would provide 1440ml volume/day, 1440 kcals, 1210ml water, and 126g protein. 2. IF TF; consider 180ml free water BID for Stephen administration for wounds if Therapy Aide agreeable on HD 3. IF TF; PALB Q /; daily scaled wts 4. routine bowel care 5. scaled wt this admit 6. upon extubation; advance diet to regular given poor PO trends and A1C 4.6% w/ initial DX hypoglycemia per EMR Addendum: 06/01/21 at [address] Amended: Links added.
--- NOTE | 2021-06-01 18:40 | NUR ---
I have received report and assumed care of pt, pt resting in bed rise and fall of chest cavity equile and symmetrical, hypothermic protocol in place Levophed in place to keep map greater then 60
[2021-06-01] MEDS: insulin glargine (Lantus) pen - multi-dose SQ SCH (21:00)
[2021-06-01 21:41] LABS: BASOPHILS % (AUTO) 0.1 % (0-1); EOSINOPHILS # (AUTO) 0.1 X10'3 (0-0.9); HEMATOCRIT 29.3 % (35.0-45.0); HEMOGLOBIN 9.5 g/dl (12.0-16.0); LYMPHOCYTES % (AUTO) 9.3 % (21-51); MEAN CORPUSCULAR HEMOGLOBIN 31.6 PG (27.0-31.0); MEAN CORPUSCULAR HGB CONC 32.4 g/dL (33.0-36.5); MEAN CORPUSCULAR VOLUME 97.4 FL (78-98); MEAN PLATELET VOLUME 8.3 FL (7.4-10.4); MONOCYTES # (AUTO) 0.4 X10'3 (0-0.9); MONOCYTES % (AUTO) 4.2 % (2-12); NEUTROPHILS # (AUTO) 9.1 X10'3 (1.8-7.7); NEUTROPHILS % (AUTO) 85.4 % (42-75); PLATELET COUNT 108 X10'3 (140-440); RED CELL DISTRIBUTION WIDTH 22.9 % (11.5-14.5); WHITE BLOOD COUNT 10.7 X10'3 (4.5-11.0)
[2021-06-01 22:00] LABS: ANION GAP 7 (8-16); BLOOD UREA NITROGEN 4 MG/DL (7-18); BUN/CREATININE RATIO 1.7 (6.6-38.0); CALCIUM 8.4 MG/DL (8.5-10.1); CHLORIDE 105 MMOL/L (99-107); CREATINE KINASE 86 U/L (26-192); CREATININE 2.39 MG/DL (0.40-0.90); GLUCOSE 141 MG/DL (70-104); MAGNESIUM 1.6 MG/DL (1.5-2.4); POTASSIUM 3.5 MMOL/L (3.5-5.1); SODIUM 138 MMOL/L (135-145); TOTAL CARBON DIOXIDE 25.9 MMOL/L (24-32); eGFR 22 ML/MIN
[2021-06-01 22:02] LABS: ABG BASE EXCESS 2.5 mmol/L (-2.0-2.0); ABG HCO3 25.3 mmol/L (22.0-26.0); ABG OXYGEN SATURATION 97.8 % (94-97); ABG PCO2 (T) 27.3 mmHg (32.0-45.0); ABG PO2 (T) 82.2 mmHg (75.0-100.0); ALLEN'S TEST POSITIVE; FCOHb 0.3 % (0.0-3.9); FMetHb 0.2 % (0.0-1.5); FO2Hb 97.3 % (94-97); PEEP 5 cm H2O; RESPIRATORY RATE 14 b/min; TIDAL VOLUME 400 mL; TOTAL HEMOGLOBIN 10.5 G/dl (12.0-16.0)
[2021-06-02] VITALS (22 sets, daily range): BP systolic 82–121; BP diastolic 45–70
[2021-06-02] MEDS: Insulin Reg/NS 100units/100mL 100 ML IV SCH
[2021-06-02] MEDS: midazolam 100mg in NS 100ml 100 ML IV PRN ×3 (00:19→14:21)
[2021-06-02] MEDS: mineral oil/petrolatum ophthal oint EACHEYE SCH ×6 (00:19→20:51)
[2021-06-02] MEDS: ampicillin inj 1 GM in normal saline 100ml IV soln 100 ML IV SCH ×3 (00:19→20:51)
[2021-06-02] MEDS: FENTANYL-0.9 % NACL/PF 100 ML IV PRN ×3 (00:19→19:26)
[2021-06-02 00:51] LABS: ANISOCYTOSIS 3+; PLATELET ESTIMATE DECREASED
[2021-06-02 00:53] LABS: ROULEAUX 1+
[2021-06-02 00:54] LABS: BURR CELLS FEW; POLYCHROMASIA FEW
[2021-06-02 00:55] LABS: TARGET CELLS FEW
[2021-06-02] MEDS ORDERED: mineral oil/petrolatum ophthal oint EACHEYE SCH (02:00)
[2021-06-02] MEDS ORDERED: cefepime 1GM in D5W 50mL 50 ML IV SCH (03:00)
[2021-06-02 03:21] LABS: ABG BASE EXCESS 2.1 mmol/L (-2.0-2.0); ABG HCO3 25.5 mmol/L (22.0-26.0); ABG OXYGEN SATURATION 98.2 % (94-97); ABG PCO2 (T) 29.4 mmHg (32.0-45.0); ABG PO2 (T) 90.5 mmHg (75.0-100.0); ALLEN'S TEST POSITIVE; FCOHb 0.3 % (0.0-3.9); FMetHb 0.4 % (0.0-1.5); FO2Hb 97.5 % (94-97); PEEP 5 cm H2O; RESPIRATORY RATE 12 b/min; TIDAL VOLUME 400 mL; TOTAL HEMOGLOBIN 10.5 G/dl (12.0-16.0)
[2021-06-02 03:24] LABS: BASOPHILS % (AUTO) 0.2 % (0-1); EOSINOPHILS # (AUTO) 0.2 X10'3 (0-0.9); EOSINOPHILS % (AUTO) 1.4 % (0-6); HEMATOCRIT 28.3 % (35.0-45.0); HEMOGLOBIN 9.4 g/dl (12.0-16.0); LYMPHOCYTES # (AUTO) 0.9 X10'3 (1.1-4.8); LYMPHOCYTES % (AUTO) 8.4 % (21-51); MEAN CORPUSCULAR HEMOGLOBIN 31.8 PG (27.0-31.0); MEAN CORPUSCULAR HGB CONC 33.3 g/dL (33.0-36.5); MEAN CORPUSCULAR VOLUME 95.4 FL (78-98); MEAN PLATELET VOLUME 7.9 FL (7.4-10.4); MONOCYTES # (AUTO) 0.4 X10'3 (0-0.9); MONOCYTES % (AUTO) 3.5 % (2-12); NEUTROPHILS % (AUTO) 86.5 % (42-75); PLATELET COUNT 100 X10'3 (140-440); RED BLOOD COUNT 2.97 X10'6 (4.20-5.60); RED CELL DISTRIBUTION WIDTH 22.1 % (11.5-14.5); WHITE BLOOD COUNT 10.4 X10'3 (4.5-11.0)
[2021-06-02 03:35] LABS: APTT 48 SECONDS (22-32)
[2021-06-02 03:50] LABS: ALANINE AMINOTRANSFERASE 18 U/L (12-78); ALBUMIN/GLOBULIN RATIO 0.3 (1.1-1.5); ALKALINE PHOSPHATASE 183 IU/L (46-116); ANION GAP 8 (8-16); ASPARTATE AMINO TRANSFERASE 56 U/L (10-37); BILIRUBIN,TOTAL 1.4 MG/DL (0.1-1.0); BLOOD UREA NITROGEN 4 MG/DL (7-18); BUN/CREATININE RATIO 1.6 (6.6-38.0); CHLORIDE 104 MMOL/L (99-107); CREATINE KINASE 59 U/L (26-192); CREATININE 2.43 MG/DL (0.40-0.90); GLUCOSE 144 MG/DL (70-104); MAGNESIUM 1.7 MG/DL (1.5-2.4); POTASSIUM 3.5 MMOL/L (3.5-5.1); SODIUM 139 MMOL/L (135-145); TOTAL CARBON DIOXIDE 26.7 MMOL/L (24-32); TOTAL PROTEIN 4.6 G/DL (6.4-8.2); eGFR 21 ML/MIN
[2021-06-02 04:25] LABS: ANISOCYTOSIS 3+; NUCLEATED RED BLOOD CELLS 2 /100WBC (0-0); PLATELET ESTIMATE DECREASED; TOTAL CELLS COUNTED 100
[2021-06-02 04:26] LABS: POLYCHROMASIA FEW
[2021-06-02 04:27] LABS: LARGE PLATELETS FEW; TARGET CELLS FEW
[2021-06-02] MEDS: lansoprazole 15mg solutab OGT SCH (07:01)
[2021-06-02] MEDS: CefTRIAXone 2gm/D5W 50ml BAG 50 ML IV SCH ×2 (07:02→20:47)
[2021-06-02] MEDS: aspirin 81mg tab.chew OGT SCH (07:02)
[2021-06-02] MEDS: docusate sodium 100mg/10ml UD cup OGT SCH ×2 (07:02→20:00)
[2021-06-02] MEDS: midodrine 5mg tablet PO SCH ×3 (07:02→18:08)
[2021-06-02] MEDS: atorvastatin 20mg tablet OGT SCH (07:09)
[2021-06-02] MEDS: gabapentin 300mg capsule OGT SCH (07:38)
[2021-06-02] MEDS: K and/or MAG REPLACEMENT MC SCH ×2 (08:00→19:42)
[2021-06-02] MEDS ORDERED: heparin 1,000 units/ml 10ml inj IV ONE (08:20)
[2021-06-02] MEDS ORDERED: EPOETIN ALFA-EPBX 20,000 UNIT/ML 1 ML MDV IV ONE (08:20)
[2021-06-02] MEDS ORDERED: albumin (human) 25% 100ml IV 100 ML IV PRN (08:20)
[2021-06-02] MEDS ORDERED: heparin 1,000unit/ml 10ml vial 10 ML IV ONE (08:20)
[2021-06-02] MEDS ORDERED: heparin 1,000 units/ml 10ml inj HE ONE ×2 (08:25)
[2021-06-02 08:27] LABS: CREATINE KINASE 55 U/L (26-192)
[2021-06-02 11:45] LABS: ANION GAP 9 (8-16); BLOOD UREA NITROGEN 5 MG/DL (7-18); BUN/CREATININE RATIO 2.1 (6.6-38.0); CALCIUM 8.4 MG/DL (8.5-10.1); CHLORIDE 105 MMOL/L (99-107); CREATININE 2.41 MG/DL (0.40-0.90); GLUCOSE 123 MG/DL (70-104); MAGNESIUM 1.7 MG/DL (1.5-2.4); PHOSPHORUS 2.8 MG/DL (2.3-4.5); POTASSIUM 3.6 MMOL/L (3.5-5.1); SODIUM 139 MMOL/L (135-145); TOTAL CARBON DIOXIDE 25.4 MMOL/L (24-32); eGFR 22 ML/MIN
[2021-06-02] MEDS: heparin, porcine 5000 units/ml vial SQ SCH ×2 (12:13→21:19)
[2021-06-02 12:46] LABS: ABG BASE EXCESS 2.4 mmol/L (-2.0-2.0); ABG OXYGEN SATURATION 94.6 % (94-97); ABG PCO2 (T) 48.7 mmHg (32.0-45.0); ABG PO2 (T) 76.4 mmHg (75.0-100.0); ALLEN'S TEST Modified; FCOHb 0.3 % (0.0-3.9); FMetHb 0.3 % (0.0-1.5); PEEP 5 cm H2O; RESPIRATORY RATE 12 b/min; TIDAL VOLUME 400 mL
[2021-06-02] MEDS ORDERED: NOREPINEPHRINE BITARTRATE/D5W 250 ML IV SCH (17:50)
[2021-06-02] MEDS ORDERED: NORepinephrine 8mg/ 250ml NS 250 ML IV SCH (17:56)
[2021-06-02] MEDS: insulin glargine (Lantus) pen - multi-dose SQ SCH (20:56)
[2021-06-03] VITALS (28 sets, daily range): BP systolic 81–133; BP diastolic 42–63
[2021-06-03] MEDS: mineral oil/petrolatum ophthal oint EACHEYE SCH ×6 (00:33→20:33)
[2021-06-03] MEDS: NORepinephrine inj. 32 MG in normal saline 250ml IV soln 218 ML IV SCH (00:37)
[2021-06-03] MEDS: dextrose 50%-water 50ml dispensing syringe IV PRN (02:20)
[2021-06-03 02:28] LABS: BASOPHILS # (AUTO) 0.1 X10'3 (0-0.2); BASOPHILS % (AUTO) 0.7 % (0-1); EOSINOPHILS # (AUTO) 0.5 X10'3 (0-0.9); EOSINOPHILS % (AUTO) 4.5 % (0-6); HEMATOCRIT 24.3 % (35.0-45.0); HEMOGLOBIN 8.2 g/dl (12.0-16.0); MEAN CORPUSCULAR HEMOGLOBIN 32.1 PG (27.0-31.0); MEAN CORPUSCULAR HGB CONC 33.6 g/dL (33.0-36.5); MEAN CORPUSCULAR VOLUME 95.7 FL (78-98); MEAN PLATELET VOLUME 7.9 FL (7.4-10.4); MONOCYTES # (AUTO) 0.9 X10'3 (0-0.9); MONOCYTES % (AUTO) 7.9 % (2-12); NEUTROPHILS # (AUTO) 8.5 X10'3 (1.8-7.7); NEUTROPHILS % (AUTO) 77.9 % (42-75); PLATELET COUNT 101 X10'3 (140-440); RED BLOOD COUNT 2.54 X10'6 (4.20-5.60); RED CELL DISTRIBUTION WIDTH 21.2 % (11.5-14.5)
[2021-06-03 02:41] LABS: APTT 62 SECONDS (22-32)
[2021-06-03 02:45] LABS: ALANINE AMINOTRANSFERASE 17 U/L (12-78); ALBUMIN 1.4 G/DL (3.4-5.0); ALBUMIN/GLOBULIN RATIO 0.5 (1.1-1.5); ALKALINE PHOSPHATASE 192 IU/L (46-116); ANION GAP 4 (8-16); ASPARTATE AMINO TRANSFERASE 56 U/L (10-37); BILIRUBIN,TOTAL 1.4 MG/DL (0.1-1.0); BLOOD UREA NITROGEN 4 MG/DL (7-18); BUN/CREATININE RATIO 2.1 (6.6-38.0); CALCIUM 8.1 MG/DL (8.5-10.1); CHLORIDE 107 MMOL/L (99-107); CREATININE 1.87 MG/DL (0.40-0.90); GLUCOSE 76 MG/DL (70-104); MAGNESIUM 1.6 MG/DL (1.5-2.4); PHOSPHORUS 2.1 MG/DL (2.3-4.5); POTASSIUM 3.6 MMOL/L (3.5-5.1); SODIUM 139 MMOL/L (135-145); TOTAL CARBON DIOXIDE 27.9 MMOL/L (24-32); TOTAL PROTEIN 4.5 G/DL (6.4-8.2); eGFR 29 ML/MIN
[2021-06-03 02:54] LABS: ANISOCYTOSIS 3+; PLATELET ESTIMATE DECREASED
[2021-06-03 02:55] LABS: POLYCHROMASIA FEW
[2021-06-03 02:56] LABS: SPHEROCYTES FEW; STOMATOCYTES FEW
[2021-06-03 02:57] LABS: TARGET CELLS FEW
[2021-06-03 03:25] LABS: ABG BASE EXCESS 4.4 mmol/L (-2.0-2.0); ABG HCO3 29.2 mmol/L (22.0-26.0); ABG OXYGEN SATURATION 95.1 % (94-97); ABG PCO2 (T) 44.7 mmHg (32.0-45.0); ABG PO2 (T) 77.1 mmHg (75.0-100.0); ALLEN'S TEST POSITIVE; FCOHb 0.4 % (0.0-3.9); FMetHb 0.3 % (0.0-1.5); FO2Hb 94.4 % (94-97); PATIENT TEMPERATURE 36.8; PEEP 5 cm H2O; RESPIRATORY RATE 12 b/min; TIDAL VOLUME 400 mL; TOTAL HEMOGLOBIN 8.6 G/dl (12.0-16.0)
[2021-06-03] MEDS: CefTRIAXone 2gm/D5W 50ml BAG 50 ML IV SCH ×2 (07:42→20:34)
[2021-06-03] MEDS: docusate sodium 100mg/10ml UD cup OGT SCH ×2 (07:42→20:34)
[2021-06-03] MEDS: ampicillin inj 1 GM in normal saline 100ml IV soln 100 ML IV SCH ×3 (07:42→20:34)
[2021-06-03] MEDS: heparin, porcine 5000 units/ml vial SQ SCH ×2 (07:43→20:34)
[2021-06-03] MEDS: midodrine 5mg tablet PO SCH ×3 (07:43→17:53)
[2021-06-03] MEDS: aspirin 81mg tab.chew OGT SCH (07:43)
[2021-06-03] MEDS: gabapentin 300mg capsule OGT SCH (07:43)
[2021-06-03] MEDS: lansoprazole 15mg solutab OGT SCH (07:43)
[2021-06-03] MEDS: atorvastatin 20mg tablet OGT SCH (07:43)
[2021-06-03] MEDS: midazolam 100mg in NS 100ml 100 ML IV PRN (07:55)
[2021-06-03] MEDS: K and/or MAG REPLACEMENT MC SCH ×2 (08:00→20:00)
[2021-06-03] MEDS ORDERED: dextrose 5%-normal saline 1,000 ML IV SCH ×2 (10:20)
--- NOTE | 2021-06-03 13:50 | NUR ---
TF Consult: Pt MAP 63 this AM w/ OG in place okay to start TF today per cardiopulmonary technician; recs below. Occupational Therapy Department Chair is agreeable to 180ml free water BID for Stephen administration given pt wound healing needs. LBM 05/31 receiving routine colace. Will continue to monitor for TF tolerance and adjustment needs. Rec: 1. Continuous TF per MD using Vital High Protein at 60ml/hr goal; to provide 1440ml volume/day, 1440 kcals, 1210ml water, and 126g protein. 2. 180ml free water BID for Stephen administration; okay on HD per MD 3. PALB Q /; daily scaled wts 4. routine bowel care 5. monitor for TF tolerance and adjustment needs 6. upon extubation; advance diet to regular given poor PO trends and A1C 4.6% w/ initial DX hypoglycemia per EMR Addendum: 06/03/21 at [address] Amended: Links added. Addendum: 06/03/21 at [address] Rec: 1. Continuous TF per MD using Vital High Protein at 60ml/hr goal; to provide 1440ml volume/day, 1440 kcals, 1210ml water, and 126g protein. 2. 180ml free water BID for Stephen administration; okay on HD per MD. Mix one packet Stephen w/ 120ml free water and flush tube w/ 30ml before/after administration 3. PALB Q /; daily scaled wts 4. routine bowel care 5. monitor for TF tolerance and adjustment needs 6. upon extubation; advance diet to regular given poor PO trends and A1C 4.6% w/ initial DX hypoglycemia per EMR
[2021-06-03] MEDS: FENTANYL-0.9 % NACL/PF 100 ML IV PRN (15:24)
[2021-06-03] MEDS ORDERED: NORepinephrine 8mg/ 250ml NS 250 ML IV ONE (15:37)
[2021-06-03] MEDS: ARGININE/GLUTAMINE/CALCIUM BMB (JUVEN 19.3GM PKT) 1 EACH POWD.PACK PO SCH (20:00)
[2021-06-03] MEDS: lactobacillus rhamnosus 10,000 MMU CELLS/CAPSULE OGT SCH (20:34)
[2021-06-03] MEDS: Insulin Reg/NS 100units/100mL 100 ML IV SCH ×2 (20:34)
[2021-06-03] MEDS: insulin glargine (Lantus) pen - multi-dose SQ SCH (20:34)
[2021-06-03 21:38] LABS: ABG BASE EXCESS 3.1 mmol/L (-2.0-2.0); ABG HCO3 27.8 mmol/L (22.0-26.0); ABG OXYGEN SATURATION 95.2 % (94-97); ABG PCO2 (T) 42.4 mmHg (32.0-45.0); ABG PO2 (T) 75.3 mmHg (75.0-100.0); ALLEN'S TEST POSITIVE; FCOHb 0.4 % (0.0-3.9); FMetHb 0.4 % (0.0-1.5); FO2Hb 94.4 % (94-97); PATIENT TEMPERATURE 36.5; PEEP 5 cm H2O; RESPIRATORY RATE 12 b/min; TIDAL VOLUME 400 mL
[2021-06-04] VITALS (55 sets, daily range): BP systolic 71–125; BP diastolic 41–76
[2021-06-04 03:37] LABS: BASOPHILS # (AUTO) 0.1 X10'3 (0-0.2); EOSINOPHILS # (AUTO) 0.5 X10'3 (0-0.9); HEMOGLOBIN 7.2 g/dl (12.0-16.0)
[2021-06-04 03:39] LABS: BASOPHILS % (AUTO) 1.1 % (0-1); EOSINOPHILS % (AUTO) 4.9 % (0-6); HEMATOCRIT 22.1 % (35.0-45.0); LYMPHOCYTES # (AUTO) 1.1 X10'3 (1.1-4.8); LYMPHOCYTES % (AUTO) 10.1 % (21-51); MEAN CORPUSCULAR HEMOGLOBIN 31.5 PG (27.0-31.0); MEAN CORPUSCULAR HGB CONC 32.8 g/dL (33.0-36.5); MEAN CORPUSCULAR VOLUME 96.3 FL (78-98); MONOCYTES # (AUTO) 1.3 X10'3 (0-0.9); NEUTROPHILS # (AUTO) 8.1 X10'3 (1.8-7.7); NEUTROPHILS % (AUTO) 71.9 % (42-75); PLATELET COUNT 82 X10'3 (140-440); RED CELL DISTRIBUTION WIDTH 22.6 % (11.5-14.5); WHITE BLOOD COUNT 11.2 X10'3 (4.5-11.0)
[2021-06-04 03:51] LABS: APTT 57 SECONDS (22-32)
[2021-06-04 03:56] LABS: ALANINE AMINOTRANSFERASE 15 U/L (12-78); ALBUMIN/GLOBULIN RATIO 0.3 (1.1-1.5); ALKALINE PHOSPHATASE 175 IU/L (46-116); ANION GAP 4 (8-16); ASPARTATE AMINO TRANSFERASE 55 U/L (10-37); BILIRUBIN,TOTAL 1.3 MG/DL (0.1-1.0); BLOOD UREA NITROGEN 6 MG/DL (7-18); BUN/CREATININE RATIO 2.6 (6.6-38.0); CALCIUM 7.8 MG/DL (8.5-10.1); CHLORIDE 106 MMOL/L (99-107); CREATININE 2.34 MG/DL (0.40-0.90); GLUCOSE 76 MG/DL (70-104); MAGNESIUM 1.6 MG/DL (1.5-2.4); PHOSPHORUS 2.5 MG/DL (2.3-4.5); POTASSIUM 3.8 MMOL/L (3.5-5.1); SODIUM 138 MMOL/L (135-145); eGFR 22 ML/MIN
[2021-06-04 04:16] LABS: ABG BASE EXCESS 3.1 mmol/L (-2.0-2.0); ABG HCO3 27.6 mmol/L (22.0-26.0); ABG OXYGEN SATURATION 95.7 % (94-97); ABG PCO2 (T) 41.4 mmHg (32.0-45.0); ABG PO2 (T) 77.5 mmHg (75.0-100.0); ALLEN'S TEST POSITIVE; FCOHb 0.5 % (0.0-3.9); FMetHb 0.2 % (0.0-1.5); PATIENT TEMPERATURE 36.7; PEEP 5 cm H2O; TIDAL VOLUME 400 mL; TOTAL HEMOGLOBIN 8.5 G/dl (12.0-16.0)
[2021-06-04] MEDS: mineral oil/petrolatum ophthal oint EACHEYE SCH ×5 (04:27→16:05)
[2021-06-04 04:36] LABS: ANISOCYTOSIS 3+; PLATELET ESTIMATE DECREASED
[2021-06-04 04:37] LABS: POLYCHROMASIA FEW; SPHEROCYTES FEW; TARGET CELLS FEW
[2021-06-04] MEDS: NORepinephrine inj. 32 MG in normal saline 250ml IV soln 218 ML IV SCH ×2 (07:07→14:51)
[2021-06-04] MEDS: K and/or MAG REPLACEMENT MC SCH (08:00)
[2021-06-04] MEDS ORDERED: NOREPINEPHRINE BITARTRATE/D5W 8 MG/250mL bag IV ONE (08:00)
[2021-06-04] MEDS: ARGININE/GLUTAMINE/CALCIUM BMB (JUVEN 19.3GM PKT) 1 EACH POWD.PACK PO SCH (08:00)
[2021-06-04] MEDS: ampicillin inj 1 GM in normal saline 100ml IV soln 100 ML IV SCH (08:32)
[2021-06-04] MEDS: docusate sodium 100mg/10ml UD cup OGT SCH (08:32)
[2021-06-04] MEDS: CefTRIAXone 2gm/D5W 50ml BAG 50 ML IV SCH ×2 (08:32→10:00)
[2021-06-04] MEDS: midodrine 5mg tablet PO SCH ×3 (08:33→16:07)
[2021-06-04] MEDS: lactobacillus rhamnosus 10,000 MMU CELLS/CAPSULE OGT SCH (08:33)
[2021-06-04] MEDS: aspirin 81mg tab.chew OGT SCH (08:33)
[2021-06-04] MEDS: lansoprazole 15mg solutab OGT SCH (08:33)
[2021-06-04] MEDS: gabapentin 300mg capsule OGT SCH (08:33)
[2021-06-04] MEDS: heparin, porcine 5000 units/ml vial SQ SCH (08:33)
[2021-06-04] MEDS: atorvastatin 20mg tablet OGT SCH (08:33)
[2021-06-04] MEDS ORDERED: heparin 1,000unit/ml 10ml vial 10 ML IV ONE (08:50)
[2021-06-04] MEDS ORDERED: heparin 1,000 units/ml 10ml inj IV ONE (08:50)
[2021-06-04] MEDS ORDERED: albumin (human) 25% 100ml IV 100 ML IV PRN (08:50)
[2021-06-04] MEDS ORDERED: EPOETIN ALFA-EPBX 20,000 UNIT/ML 1 ML MDV IV ONE (08:50)
[2021-06-04] MEDS ORDERED: heparin 1,000 units/ml 10ml inj HE ONE ×2 (08:50)
[2021-06-04] MEDS: vasopressin 40 UNIT in D5W 40ml IV DRIP IV SCH ×2 (11:45→11:59)
[2021-06-04 12:03] LABS: BASOPHILS # (AUTO) 0.1 X10'3 (0-0.2); LYMPHOCYTES # (AUTO) 1.2 X10'3 (1.1-4.8); MONOCYTES # (AUTO) 0.8 X10'3 (0-0.9); RED BLOOD COUNT 2.23 X10'6 (4.20-5.60); WHITE BLOOD COUNT 10.3 X10'3 (4.5-11.0)
[2021-06-04 12:04] LABS: BASOPHILS % (AUTO) 1.1 % (0-1); EOSINOPHILS # (AUTO) 0.6 X10'3 (0-0.9); HEMOGLOBIN 7.3 g/dl (12.0-16.0); LYMPHOCYTES % (AUTO) 11.6 % (21-51); MEAN CORPUSCULAR HEMOGLOBIN 32.5 PG (27.0-31.0); MEAN CORPUSCULAR HGB CONC 33.5 g/dL (33.0-36.5); MEAN CORPUSCULAR VOLUME 97.1 FL (78-98); MEAN PLATELET VOLUME 8.3 FL (7.4-10.4); NEUTROPHILS # (AUTO) 7.5 X10'3 (1.8-7.7); NEUTROPHILS % (AUTO) 73.3 % (42-75); PLATELET COUNT 69 X10'3 (140-440); RED CELL DISTRIBUTION WIDTH 25.1 % (11.5-14.5)
[2021-06-04 12:13] LABS: HEMATOCRIT 21.7 % (35.0-45.0)
[2021-06-04 13:10] LABS: ANISOCYTOSIS 3+; PLATELET ESTIMATE DECREASED; POLYCHROMASIA FEW; STOMATOCYTES 1+
[2021-06-04] MEDS: dextrose 50%-water 50ml dispensing syringe IV PRN ×2 (16:03→16:39)
[2021-06-04 17:14] LABS: ABG BASE EXCESS -0.6 mmol/L (-2.0-2.0); ABG HCO3 25.6 mmol/L (22.0-26.0); ABG OXYGEN SATURATION 95.9 % (94-97); ABG PCO2 (T) 49.5 mmHg (32.0-45.0); ABG PO2 (T) 85.9 mmHg (75.0-100.0); ALLEN'S TEST POSITIVE; FCOHb 0.3 % (0.0-3.9); FMetHb 0.5 % (0.0-1.5); FO2Hb 95.1 % (94-97); PATIENT TEMPERATURE 36.7; PEEP 5 cm H2O; RESPIRATORY RATE 12 b/min; TIDAL VOLUME 400 mL; TOTAL HEMOGLOBIN 8.8 G/dl (12.0-16.0)
--- NOTE | 2021-06-04 19:57 | NUR ---
RN IS TO DOCUMENT YES TO ALL APPLICABLE AREAS Pronouncement of : 1. Time Physician Notified: 2. Date of : 15 May 2021 3. Time of : 1956 4. DNR/Withdraw life support documented: yes 5. Monitor strip has been placed on chart: yes 6. Assessment process is of one-minute duration and includes following criteria: a) Patient is unresponsive to all stimuli: yes b) Pupils fixed and non-reactive: yes c) Auscultation of precordium reveals absence of heart tones: yes d) Auscultation of lungs reveals absence of breath sounds: yes e) Absence of blood pressure / all vital signs: yes f) QRS complexes are not present on monitor / EKG strip: yes g) Pacer spikes without capture: n/a 4. Comments: Family at bedside. Pt extubated to comfort care at 1925. Family's mortuary of choice contacted; [facility] [phone]
== END 2021-06-04 19:57 | DRG 871 ==
LOC: ER 14:25 → ED HOLD 16:21 → UNDOADMIN 16:26 → ED HOLD 16:26 → EDBEDREQ 21:02 → ED HOLD 23:15 → PCU 3S 23:15 → ICU 2S 05-31 23:37
PROVIDERS: ADMIT Family Medicine; ATTEND Internal Medicine
PROC: 5A1D70Z Performance of Urinary Filtration, Intermittent, Less than 6 Hours Per Day (ICD-10-PCS; principal; 2021-05-29)
PROC: 5A12012 Performance of Cardiac Output, Single, Manual (ICD-10-PCS; 2021-05-31)
PROC: 0BH17EZ Insertion of Endotracheal Airway into Trachea, Via Natural or Artificial Opening (ICD-10-PCS; 2021-05-31)
PROC: 5A1945Z Respiratory Ventilation, 24-96 Consecutive Hours (ICD-10-PCS; 2021-05-31)
PROC: 02HV33Z Insertion of Infusion Device into Superior Vena Cava, Percutaneous Approach (ICD-10-PCS; 2021-06-01)
PROC: B548ZZA Ultrasonography of Superior Vena Cava, Guidance (ICD-10-PCS; 2021-06-01)
PROC: 5A1D70Z Performance of Urinary Filtration, Intermittent, Less than 6 Hours Per Day (ICD-10-PCS; 2021-06-02)
PROC: 5A1D70Z Performance of Urinary Filtration, Intermittent, Less than 6 Hours Per Day (ICD-10-PCS; 2021-06-04)
PROC: 06HY33Z Insertion of Infusion Device into Lower Vein, Percutaneous Approach (ICD-10-PCS; 2021-06-04)
PROC: B54CZZA Ultrasonography of Left Lower Extremity Veins, Guidance (ICD-10-PCS; 2021-06-04)
DX: A41.81 Sepsis due to Enterococcus (principal); R65.21 Severe sepsis with septic shock; N18.6 End stage renal disease; J96.01 Acute respiratory failure with hypoxia; J96.02 Acute respiratory failure with hypercapnia; T82.7XXA Infection and inflammatory reaction due to other cardiac and vascular devices, implants and grafts, initial encounter; I13.2 Hypertensive heart and chronic kidney disease with heart failure and with stage 5 chronic kidney disease, or end stage renal disease; L02.415 Cutaneous abscess of right lower limb; Z16.21 Resistance to vancomycin; I42.9 Cardiomyopathy, unspecified; I50.20 Unspecified systolic (congestive) heart failure; Z68.41 Body mass index [BMI] 40.0-44.9, adult; Z66 Do not resuscitate; E11.22 Type 2 diabetes mellitus with diabetic chronic kidney disease; L89.159 Pressure ulcer of sacral region, unspecified stage; R74.01 Elevation of levels of liver transaminase levels; I46.9 Cardiac arrest, cause unspecified; E78.5 Hyperlipidemia, unspecified; E11.649 Type 2 diabetes mellitus with hypoglycemia without coma; E11.51 Type 2 diabetes mellitus with diabetic peripheral angiopathy without gangrene; D63.8 Anemia in other chronic diseases classified elsewhere; K59.00 Constipation, unspecified; I49.01 Ventricular fibrillation; D69.6 Thrombocytopenia, unspecified; T87.89 Other complications of amputation stump; E66.01 Morbid (severe) obesity due to excess calories; Y83.5 Amputation of limb(s) as the cause of abnormal reaction of the patient, or of later complication, without mention of misadventure at the time of the procedure; Y83.2 Surgical operation with anastomosis, bypass or graft as the cause of abnormal reaction of the patient, or of later complication, without mention of misadventure at the time of the procedure; Z89.512 Acquired absence of left leg below knee; Z83.3 Family history of diabetes mellitus; Z89.511 Acquired absence of right leg below knee; Z99.2 Dependence on renal dialysis; Z79.4 Long term (current) use of insulin; Z82.49 Family history of ischemic heart disease and other diseases of the circulatory system; Z79.899 Other long term (current) drug therapy; Z87.891 Personal history of nicotine dependence; Z51.5 Encounter for palliative care; Z79.82 Long term (current) use of aspirin; Z84.1 Family history of disorders of kidney and ureter; Y92.89 Other specified places as the place of occurrence of the external cause; Z95.1 Presence of aortocoronary bypass graft
CPT/HCPCS: 36415; 36556; 36589; 36600; 71045; 74018; 76937; 80048; 80053; 80202; 82330; 82550; 82553; 82803; 82948; 83036; 83605; 83735; 84100; 84145; 84484; 85007; 85008; 85018; 85025; 85610; 85730; 87040; 87070; 87077; 87081; 87186; 87340; 92950; 93005; 93306; 93971; 94002; 94003; 94760; 96374; 97161; 97530; 99285; G0257; G0378; J0290; J0692; J0696; J1644; J1815; J2270; J2405; J2543; J3010; J3370; J3490; J7050; J7060; J7070; P9047; Q4081